=== PATIENT | male | born 1965 | race Caucasian/White ===

== ENCOUNTER 2017-12-19 07:31 | Emergency (ER) | payer MEDICAID ==
[~2017-12-19] VITALS: Ht 188 cm; Wt 104.1 kg
[~2017-12-19 07:31] MED LIST: CYCL-394 PO; HYDR-569 PO; PRED20TA PO; [UNRECOGNIZED DRUG - REMARK]; cymbalta
[2017-12-19 07:42] VITALS: BP 149/100
[2017-12-19] MEDS ORDERED: AMOX-580 PO (08:20)
== END 2017-12-19 08:27 | disposition home or self-care (01) ==
LOC: ER 07:31
DX: J02.9 Acute pharyngitis, unspecified (principal); R68.83 Chills (without fever); I10 Essential (primary) hypertension; E11.9 Type 2 diabetes mellitus without complications; Z90.49 Acquired absence of other specified parts of digestive tract; Z79.899 Other long term (current) drug therapy
CPT/HCPCS: 99283

== ENCOUNTER 2020-06-13 11:41 | Emergency (ER) | payer MEDICAID ==
[~2020-06-13] VITALS: Ht 188 cm; Wt 120.5 kg
[2020-06-13 12:07] VITALS: BP 132/88
[2020-06-13] MEDS ORDERED: BACI1PAC7 TP (13:14)
[2020-06-13] MEDS ORDERED: METH4TAB81 PO (13:14)
== END 2020-06-13 13:27 | disposition home or self-care (01) ==
LOC: ER 11:42
DX: L23.7 Allergic contact dermatitis due to plants, except food (principal); I10 Essential (primary) hypertension; E11.9 Type 2 diabetes mellitus without complications; F31.9 Bipolar disorder, unspecified; F17.200 Nicotine dependence, unspecified, uncomplicated; Z90.89 Acquired absence of other organs; Z79.899 Other long term (current) drug therapy
CPT/HCPCS: 99283

== ENCOUNTER 2020-06-17 16:45 | Emergency (ER) | payer MEDICAID ==
[~2020-06-17] VITALS: Ht 188 cm; Wt 122.7 kg
[~2020-06-17 16:45] MED LIST changes: +BACI1PAC7 TP; +METH4TAB81 PO
[2020-06-17] MEDS ORDERED: CEPH500C5 PO (17:01)
[2020-06-17] MEDS ORDERED: SULF1TAB49 PO (17:01)
[2020-06-17 17:10] VITALS: BP 122/85
== END 2020-06-17 17:52 | disposition home or self-care (01) ==
LOC: ER 16:46
DX: L02.412 Cutaneous abscess of left axilla (principal); L02.411 Cutaneous abscess of right axilla; I10 Essential (primary) hypertension; E11.9 Type 2 diabetes mellitus without complications; F31.9 Bipolar disorder, unspecified; F15.90 Other stimulant use, unspecified, uncomplicated; Z90.49 Acquired absence of other specified parts of digestive tract; Z79.899 Other long term (current) drug therapy
CPT/HCPCS: 99283

== ENCOUNTER 2020-06-26 11:02 | Emergency (ER) | payer MEDICAID ==
[~2020-06-26] VITALS: Ht 188 cm; Wt 124.0 kg
[~2020-06-26 11:02] MED LIST changes: -BACI1PAC7 TP; +CEPH500C5 PO
[2020-06-26 11:26] VITALS: BP 170/86
[2020-06-26] MEDS ORDERED: PERM60CR19 TOP (11:54)
[2020-06-26] MEDS ORDERED: IBUP-1984 PO (12:01)
== END 2020-06-26 12:03 | disposition home or self-care (01) ==
LOC: ER 11:03
DX: M79.672 Pain in left foot (principal); B86 Scabies; F15.90 Other stimulant use, unspecified, uncomplicated; Z79.899 Other long term (current) drug therapy
CPT/HCPCS: 99282; 99283